=== PATIENT | female | born 1965 | race Caucasian/White ===

== ENCOUNTER 2023-08-09 12:58 | Outpatient (OUT) | payer BC, SELFPAY | END 2023-08-09 12:59 | disposition home or self-care (01) | LOC: PST 12:58 | PROVIDERS: Visit Provider Surgery | DX: Z01.818 Encounter for other preprocedural examination (principal); R19.5 Other fecal abnormalities ==

== ENCOUNTER 2023-08-17 06:18 | Day surgery (SDC) | payer BC, SELFPAY ==
--- OUTSIDE RECORDS SUMMARY | 2023-08-17 06:23 | XMS_ITS | CCD ---
Author Name Unknown Address [address] [place] [address] [address] [place] [address] Organization [facility] Care Team Providers Care Finisher Machine Name Role Phone Dayana Henry Admitting Unavailable Dayana Henry Attending Unavailable LITA FRAUSTO Admitting Unavailable LITA FRAUSTO Attending Unavailable Lita Frausto Md [facility] Primary Care Provider BOZENA NEGRETE Attending Unavailable LITA FRAUSTO MD, [facility] Primary Care BOZENA Street Attending Unavailable LITA FRAUSTO MD, [facility] Primary Care Kevin zamora Medications Current Medications Medication Drug Class(es) Dates Sig (Normalized) Sig (Original) [id number] 200 actuat albuterol 0.09 mg/actuat metered dose inhaler (2 sources) beta2-Adrenergic Agonist Start: 12-31-2016 take 2 puff(s) by inhalation every six hours as needed for wheezing albuterol (PROVENTIL HFA;VENTOLIN HFA) 90 mcg/actuation inhaler Inhale 2 puffs every 6 (six) hours as needed for wheezing. 18 g 2 12/31/2016 Active 60 actuat fluticasone propionate 0.25 mg/actuat / salmeterol 0.05 mg/actuat dry powder inhaler (4 sources) Corticosteroid, beta2-Adrenergic Agonist Start: 03-26-2023 take 1 puff(s) by inhalation in the morning ADVAIR DISKUS 250-50 mcg/dose DISKUS Inhale 1 puff in the morning and 1 puff before bedtime. 0 03/26/2023 Active Start: 12-31-2016 take 2 puff(s) by in halation twice daily fluticasone-salmeterol (ADVAIR HFA) 230-21 mcg/actuation inhaler Inhale 2 puffs 2 (two) times a day for 90 days. 1 Inhaler 2 12/31/2016 Active loratadine 10 mg oral tablet (2 sources) take 1 tablet by mouth in the morning loratadine (CLARITIN) 10 mg tablet Take 1 tablet (10 mg total) by mouth in the morning. 0 Active predniSONE 20 mg oral tablet (2 sources) Start: 05-10-2023 predniSONE (DELTASONE) 20 mg tablet Take 0.5 tablets (10 mg total) by mouth as needed. 0 05/10/2023 Active Problems Problem Classification Problem Date Documented Da te Episodic/Chronic Other gastrointestinal disorders (2 sources) Stool DNA-based colorectal cancer screening positive; Translations: [Other fecal abnormalities] 07-19-2023 Episodic Other gastrointestinal disorders (1 source) Other fecal abnormalities; Translations: [Other fecal abnormalities] Onset: 07-20-2023 Episodic Unclassified (1 source) R39.15 - Urgency of urination; Translations: [R39.15 - Urgency of urination] Onset: 09-26-2018 Unclassified (1 source) Positive Cologuard Onset: 07-20-2023 Results Test Name Value Interpretation Reference Range Facil ity Urine Cultureon 09-26-2018 Bacteria identified Cx Nom (U) ORGANISM: Escherichia coli (O:ESCCOL) Cygnet Count >100,000 Aerobic FRAN Charge (Neg) ---- SUSCEPTIBILITY --- ORGANISM: O:ESCCOL ANTIBIOTIC INTERPRETATION FRAN Amikacin S <16 Amoxacillin/K Clavulanate S <8/4 Ampicillin S <8 Ampicillin/Sulbactam S <8/4 Aztreonam S <8 Cefazolin S <8 Cefepime S <8 Cefotetan S <16 Ceftazidime S <1 Ceftriaxone S <8 Cefuroxime S <4 Ciprofloxacin S <1 Ertapenem S <2 Gentamicin S <4 Levofloxacin S <2 Meropenem S <4 Nitrofurantoin S <32 Piperacillin/Tazobact am S <16 Tetracycline S <4 Tobramycin S <4 Trimethoprim/Sulfamet hoxazole S <2/38 S = SUSCEPTIBLE I = INTERMEDIATE R = RESISTANT BLANK = DATA NOT AVAILABLE, OR DRUG NOT ADVISABLE OR TESTED R* = RESISTANCE DUE TO EXTENDED SPECTRUM BETA-LACTAMASES ESBL = EXTENDED SPECTRUM BETA-LACTAMASE TFG = THYMIDINE-DEPENDENT STRAIN FARIDEH = BETA-LACTAMASE POSITIVE IB = INDUCIBLE BETA-LACTAMASE. APPEARS IN PLACE OF 'S' WITH SPECIES KNOWN TO POSSESS INDUCIBLE BETA-LACTAMASES. POTENTIALLY THEY MAY BECOME RESISTANT TO ALL B-LACTAM DRUGS. PERFORMED BY: [place] [address] PATHOLOGIST INFANT AND TODDLER TEACHER ESTEBAN VALLE M.D. [facility] Comment on above: Performed By: #### C UU #### [address] Vital Signs Date Time Vital Sign Value Performing Clinician Brandt beck 08-10-2023 11:41-0500 Body height 167.6 cm Bozena Negrete APRN-GUIDANCE AND CONTROL SYSTEM ENGINEER Work Phone: [facility] 08-10-2023 11:41-0500 Body mass index (BMI) [Ratio] 23.86 kg/m2 Bozena Negrete MANAGER FINANCIAL SYSTEMS-GUIDANCE AND CONTROL SYSTEM ENGINEER Work Phone: [facility] 08-10-2023 11:41-0500 Body weight 67.04 kg Bozena Negrete MANAGER FINANCIAL SYSTEMS-GUIDANCE AND CONTROL SYSTEM ENGINEER Work Phone: [facility] 08-10-2023 11:41-0500 Diastolic blood pressure 102 mm[Hg] Bozena Negrete MANAGER FINANCIAL SYSTEMS-GUIDANCE AND CONTROL SYSTEM ENGINEER Work Phone: [facility] 08-10-2023 11:41-0500 Systolic blood pressure 177 mm[Hg] Bozena Negrete MANAGER FINANCIAL SYSTEMS-GUIDANCE AND CONTROL SYSTEM ENGINEER Work Phone: [facility] Encounters Encounter Date Encounter Type Care Provider Facility Start: 08-10-2023 End: 08-10-2023 ambulatory BOZENA NEGRETE [facility] Start: 08-10-2023 End: 08-10-2023 Patient encounter procedure Bozena Negrete APRNInteliVideoGUIDANCE AND CONTROL SYSTEM ENGINEER Work Phone: [facility] Comment on above: Positive colorectal cancer screening using Cologuard test (Primary Dx) Start: 07-20-2023 End: 07-20-2023 ambulatory BOZENA NEGRETE [facility] Start: 07-20-2023 End: 07-20-2023 Office outpatient visit 10 minutes Bozena Negrete MANAGER FINANCIAL SYSTEMS-GUIDANCE AND CONTROL SYSTEM ENGINEER Work Phone: [facility] Comment on above: Positive colorectal cancer screening using Cologuard test (Primary Dx) Start: 01-28-2020 Patient encounter procedure LITA FRAUSTO Facility: Start: 09-26-2018 End: 09-26-2018 Patient encounter procedure Dayana Webbault Facility:[facility] Procedures Date Procedure Procedure Detail Performing Clinician Start: 08-10-2023 Follow-up visit Follow-up BOZENA NEGRETE Plan of Treatment Date Care Activity Detail Author Start: 08-10-2024 Adult BMI Screening Adult BMI Screening [facility] Start: 08-10-2024 Tobacco Screening Tobacco Screening [facility] Start: 05-20-2024 Adult BMI Screening Adult BMI Screening [facility] Start: 05-20-2024 Tobacco Screening Tobacco Screening [facility] Start: 08-17-2023 End: 08-17-2023 Patient encounter procedure 08/17/2023 8:00 AM EST Procedure visit [facility] [address] [place] [address] Daniel Samuel DO [address] [id number] [facility] Start: 03-11-2023 COVID-19 Vaccine ( season) COVID-19 Vaccine ( season) [facility] Start: 03-11-2023 Influenza vaccination Influenza Vaccine [facility] Start: 2016 Administration of varicella zoster vaccine Zoster (Shingles) Vaccine (1 of 2) [facility] Start: 09-11-1987 Screening for malignant neoplasm of cervix Pap Smear [facility] Start: 1985 DTaP,Tdap and Td Vaccines (1 - Tdap) DTaP,Tdap and Td Vaccines (1 - Tdap) [facility] Start: 1978 Depression Screening Depression Screening [facility] Immunizations Immunization Date Immunization Notes Care Provider Fa espinoza 10-24-2020 COVID-19, mRNA, LNP- S, PF, 100mcg/0.5mL Dose Bozena Negrete MANAGER FINANCIAL SYSTEMS-GUIDANCE AND CONTROL SYSTEM ENGINEER Work Phone: [facility] 09-26-2020 COVID-19, mRNA, LNP- S, PF, 100mcg/0.5mL Dose Bozena Negrete MANAGER FINANCIAL SYSTEMS-GUIDANCE AND CONTROL SYSTEM ENGINEER Work Phone: [facility] Payers Date Payer Category Payer Unknown [employer] OUT OF STATE PPO/TRUST [id number] 2019-Present [phone] [address] [place] [address] [id number] 2019 Unknown [id number] 1966 Unknown [id number] 1966 Unknown [id number] 1966 Unknown [id number] 1959 Self-pay Unknown [id number] Social History Date Type Detail Facility Start: [facility]23 [facility] Start: 05-20-2023 Tobacco use and exposure Smoke less tobacco non-user [facility] Start: 07-20-2023 End: 08-10-2023 Alcohol intake Current drinker of alcohol (finding) [facility] Start: 09-26-2020 End: 07-20-2023 History of Social function [facility] Start: 09-26-2020 End: 07-20-2023 Tobacco use panel [facility] Housing Instability Unknown [facility] Start: 05-20-2023 Alcohol Comment socially [facility] Start: 1965 Sex Assigned At Not on file [facility] History of Present illness Narrative 08-10-2023 Bozena Negrete, MANAGER FINANCIAL SYSTEMS-GUIDANCE AND CONTROL SYSTEM ENGINEER - 08/10/2023 11:45 AM EST Note Date & Type Note Facility 08-10-2023 History of Present illness Narrative Images from the original note were not included. Chief Complaint: Updated H&P, Positive Cologuard History of Present Illness Mary Kenny is a 57 y.o. female who presents to the office for positive Cologuard. She has never had an EGD or colonoscopy. She denies any changes in her bowels including diarrhea, constipation, abdominal pain, melena, hematochezia, unexplained weight loss. There is no family history of colon cancer. She reports intermittent shortness of breath due to her asthma. Review of Systems Constitutional: Negative for fever and unexpected weight change. HENT: Negative for trouble swallowing. Respiratory: Negative for shortness of breath. Cardiovascular: Negative for chest pain and palpitations. Gastrointestinal: Negative for nausea, vomiting, abdominal pain, diarrhea, constipation, blood in stool and black tarry stool. Genitourinary: Negative for dysuria and difficulty urinating. Musculoskeletal: Negative for joint swelling and gait problem. Skin: Negative for rash and wound. Allergic/Immunologic: Negative for immunocompromised state. Neurological: Negative for dizziness, weakness and light-headedness. Hematological: Does not bruise/bleed easily. Psychiatric/Behavioral: Negative for behavioral problems and confusion. Past Medical History: Diagnosis Date Asthma No past surgical history on file. No Known Allergies Current Outpatient Medications: ADVAIR DISKUS 250-50 mcg/dose DISKUS, Inhale 1 puff in the morning and 1 puff before bedtime., Disp: , Rfl: albuterol (PROVENTIL HFA;VENTOLIN HFA) 90 mcg/actuation inhaler, Inhale 2 puffs every 6 (six) hours as needed for wheezing., Disp: 18 g, Rfl: 2 fluticasone-salmeterol (ADVAIR HFA) 230-21 mcg/actuation inhaler, Inhale 2 puffs 2 (two) times a day for 90 days., Disp: 1 Inhaler, Rfl: 2 loratadine (CLARITIN) 10 mg tablet, Take 1 tablet (10 mg total) by mouth in the morning., Disp: , Rfl: predniSONE (DELTASONE) 20 mg tablet, Take 0.5 tablets (10 mg total) by mouth as needed. (Patient not taking: Reported on 07/20/2023), Disp: , Rfl: Social History Socioeconomic History Marital status: Spouse name: Not on file Number of children: Not on file Years of education: Not on file Highest education level: Not on file Occupational History Not on file Tobacco Use Smoking status: Never Smokeless tobacco: Never Vaping Use Vaping Use: Never used Substance and Sexual Activity Alcohol use: Yes Comment: socially Drug use: Never Sexual activity: Defer Other Topics Concern Not on file Social History Narrative Not on file Social Determinants of Health Financial Resource Strain: Not on file Food Insecurity: No Food Insecurity (07/20/2023) Hunger Screening Food Insecurity - Worry: Never True Food Insecurity - Inability: Never True Transportation Needs: Not on file Physical Activity: Not on file Stress: Not on file Social Connections: Not on file Interpersonal Safety: Not on file Housing Instability: Not on file Family History Problem Relation Age of Onset Breast cancer Maternal Grandmother Objective Physical Exam Constitutional: Appearance: Normal appearance. HENT: Head: Normocephalic and atraumatic. Mouth/Throat: Mouth: Mucous membranes are moist. Eyes: Pupils: Pupils are equal, round, and reactive to light. Cardiovascular: Rate and Rhythm: Normal rate and regular rhythm. Pulmonary: Effort: Pulmonary effort is normal. No respiratory distress. Breath sounds: No wheezing. Abdominal: General: Bowel sounds are normal. There is no distension. Palpations: Abdomen is soft. Tenderness: There is no abdominal tenderness. There is no guarding. Musculoskeletal: General: Normal range of motion. Cervical back: Normal range of motion. Skin: General: Skin is warm and dry. Neurological: Mental Status: She is alert and oriented to person, place, and time. Mental status is at baseline. Vital Signs: Blood pressure (!) 177/102, height 167.6 cm (5' 6 ), weight 67 kg (147 lb 12.8 oz). Respiratory Source: No data recorded Admission Weight: Weight: 67 kg (147 lb 12.8 oz) Labs No results found for: WBC , HGB , HCT , MCV , PLT No results found for: GLU , CALCIUM , NA , K , CO2 , CL , BUN , CREATININE No results found for: AMYLASE No results found for: LIPASE No results found for: ALT , AST , GGT , ALKPHOS , LABBILI No results found for: INR , PROTIME Assessment Mary Kenny is a 57 y.o.female with positive Cologuard. Plan EGD and colonoscopy with possible biopsy and/or polypectomy. Risks, benefits, and alternatives discussed with patient. Educated on bowel evacuation preparation. Patient verbalizes understanding and wishes to proceed. Evaluation included: Preparing to see the patient (e.g., review of tests) Obtaining and/or reviewing separately obtained history Performing a medically appropriate examination and/or evaluation Counseling and educating the patient/family/caregiver Referring and communicating with other health residential child care counselor Positive colorectal cancer screening using Cologuard test [R19.5] RED CARVALHO [facility] [place] This note was created with the assistance of a speech recognition program. While intending to generate a timely document that accurately reflects the content of the visit, no guarantee can be provided that every grammatical or spelling mistake has been or will be identified or corrected. Thank you for your understanding. RED Carvalho 08/10/23 1147 documented in this encounter [facility] History of Present illness Narrative 07-20-2023 RED Carvalho - 07/20/2023 9:00 AM EST Note Date & Type Note Facility 07-20-2023 History of Present illness Narrative Images from the original note were not included. Chief Complaint: Positive Cologuard History of Present Illness Mary Kenny is a 57 y.o. female who presents to the office for positive Cologuard. She has never had an EGD or colonoscopy. She denies diarrhea, constipation, abdominal pain, melena, hematochezia, unexplained weight loss. There is no family history of colon cancer. Review of Systems Constitutional: Negative for fever and unexpected weight change. HENT: Negative for trouble swallowing. Respiratory: Negative for shortness of breath. Cardiovascular: Negative for chest pain and palpitations. Gastrointestinal: Negative for nausea, vomiting, abdominal pain, diarrhea, constipation, blood in stool and black tarry stool. Genitourinary: Negative for dysuria and difficulty urinating. Musculoskeletal: Negative for joint swelling and gait problem. Skin: Negative for rash and wound. Allergic/Immunologic: Negative for immunocompromised state. Neurological: Negative for dizziness, weakness and light-headedness. Hematological: Does not bruise/bleed easily. Psychiatric/Behavioral: Negative for behavioral problems and confusion. Past Medical History: Diagnosis Date Asthma History reviewed. No pertinent surgical history. No Known Allergies Current Outpatient Medications: ADVAIR DISKUS 250-50 mcg/dose DISKUS, Inhale 1 puff in the morning and 1 puff before bedtime., Disp: , Rfl: albuterol (PROVENTIL HFA;VENTOLIN HFA) 90 mcg/actuation inhaler, Inhale 2 puffs every 6 (six) hours as needed for wheezing., Disp: 18 g, Rfl: 2 fluticasone-salmeterol (ADVAIR HFA) 230-21 mcg/actuation inhaler, Inhale 2 puffs 2 (two) times a day for 90 days., Disp: 1 Inhaler, Rfl: 2 loratadine (CLARITIN) 10 mg tablet, Take 1 tablet (10 mg total) by mouth in the morning., Disp: , Rfl: predniSONE (DELTASONE) 20 mg tablet, Take 0.5 tablets (10 mg total) by mouth as needed. (Patient not taking: Reported on 07/20/2023), Disp: , Rfl: Social History Socioeconomic History Marital status: Spouse name: Not on file Number of children: Not on file Years of education: Not on file Highest education level: Not on file Occupational History Not on file Tobacco Use Smoking status: Never Smokeless tobacco: Never Vaping Use Vaping Use: Never used Substance and Sexual Activity Alcohol use: Yes Comment: socially Drug use: Never Sexual activity: Defer Other Topics Concern Not on file Social History Narrative Not on file Social Determinants of Health Financial Resource Strain: Not on file Food Insecurity: No Food Insecurity (07/20/2023) Hunger Screening Food Insecurity - Worry: Never True Food Insecurity - Inability: Never True Transportation Needs: Not on file Physical Activity: Not on file Stress: Not on file Social Connections: Not on file Interpersonal Safety: Not on file Family History Problem Relation Age of Onset Breast cancer Maternal Grandmother Objective Physical Exam Constitutional: Appearance: Normal appearance. Pulmonary: Effort: Pulmonary effort is normal. No respiratory distress. Musculoskeletal: General: Normal range of motion. Neurological: Mental Status: She is alert and oriented to person, place, and time. Mental status is at baseline. Vital Signs: There were no vitals taken for this visit. Respiratory Source: No data recorded Admission Weight: Labs No results found for: WBC , HGB , HCT , MCV , PLT No results found for: GLU , CALCIUM , NA , K , CO2 , CL , BUN , CREATININE No results found for: AMYLASE No results found for: LIPASE No results found for: ALT , AST , GGT , ALKPHOS , LABBILI No results found for: INR , PROTIME Assessment Mary Kenny is a 57 y.o.female with positive Cologuard. Plan EGD and colonoscopy with possible biopsy and/or polypectomy. Risks, benefits, and alternatives discussed with patient. Educated on bowel evacuation preparation. Patient verbalizes understanding and wishes to proceed. Evaluation included: Preparing to see the patient (e.g., review of tests) Obtaining and/or reviewing separately obtained history Performing a medically appropriate examination and/or evaluation Counseling and educating the patient/family/caregiver Referring and communicating with other health residential child care counselor Positive colorectal cancer screening using Cologuard test [R19.5] BOZENA NEGRETE, MANAGER FINANCIAL SYSTEMS-GUIDANCE AND CONTROL SYSTEM ENGINEER [facility] [place] This note was created with the assistance of a speech recognition program. While intending to generate a timely document that accurately reflects the content of the visit, no guarantee can be provided that every grammatical or spelling mistake has been or will be identified or corrected. Thank you for your understanding. Video Visit via Real-time Synchronous Audiovisual Provider Location: [facility] GENERAL SURGERY [facility] [address] [place] [address] Patient Location: Other Video Visit Consent Statement: I discussed risks, benefits, and alternatives of a real-time synchronous audiovisual consultation with the patient (and any accompanying persons) including the risks that the patient's personal health details and medical records will be discussed over real-time, synchronous, interactive video/audio/telecommunication technology, the visit will not be recorded without the express consent of both the provider and the patient, and that there are some limitations compared to [id number] evaluations. The patient consented to the presence of additional virtual and/or in-person participants. We elected to proceed. RED Carvalho 07/20/23 0908 documented in this encounter [facility] Evaluation note Note Date & Type Note Facility Evaluation note Diagnosis Positive colorectal cancer screening using Cologuard test- Primary documented in this encounter [facility] Evaluation note Note Date & Type Note Facility Evaluation note Diagnosis Positive colorectal cancer screening using Cologuard test- Primary documented in this encounter [facility] Instructions Note Date & Type Note Facility Instructions Not on filedocumented in this en counter [facility] Instructions Note Date & Type Note Facility Instructions Not on filedocumented in this en counter [facility] Summary Purpose Family History No Family History Records FoundNo Family History Records FoundNo Family History Records Found Advance Directives No Advanced Directives Records FoundNo Advanced Directives Records FoundNo Advanced Directives Records Found Additional Source Comments INFORMATION SOURCE (unrecogn ized section and content) DATE CREATED AUTHOR 10/14/2018 [facility] DATE CREATED AUTHOR AUTHOR'S ORGANIZ ATION 02/02/2020 [facility] DATE CREATED AUTHOR AUTHOR'S ORGANIZ ATION 08/14/2023 [facility] Reason for Visit (unrecogniz ed section and content) Reason Comments Positive Cologuard Updated H&P for 2023 EGD/Colonoscopy at [facility] Reason Comments Follow-up pt. needs updated H & P per [facility] surgery 08/17/23 - Colonoscopy, positive cologuard Care Teams (unrecognized sec tion and content) Finisher Machine Relationship Specialty Start Date End Date Lita Frausto Md [address] [address] PCP - General Internal Medicine 10/31/23 Finisher Machine Relationship Specialty Start Date End Date Lita Frausto Md [address] [address] PCP - General Internal Medicine 05/10/23 FOR RECORDS PERTAINING TO PATIENTS WHO ARE OR HAVE BEEN ENROLLED IN A CHEMICAL DEPENDENCY/SUBSTANCEABUSE PROGRAM, SOME INFORMATION MAY BE OMITTED. This clinical summary was aggregated from multiple sources. Caution should be exercised in using it in the provision of clinical care. This summary normalizes information from multiple sources, and as a consequence, information in this document may materially change the coding, format and clinical context of patient data. In addition, data may be omitted in some cases. CLINICAL DECISIONS SHOULD BE BASED ON THE PRIMARY CLINICAL RECORDS. [employer] provides no warranty or guarantee of the accuracy or completeness of information in this document.
[2023-08-17 06:44] VITALS: BP 152/93; PULSE 95; RESP 16; TEMP 35.8; O2SAT 96; BMI 23.6
[2023-08-17] MEDS: LACTATED RINGER'S SOLUTION 1,000 ML 50 ML IV (07:04)
--- NOTE | 2023-08-17 08:05 | P.GSPRC_ITS ---
Date of procedure: 08/17/23 Indications for Procedure: positive colo guard Pre-op diagnosis: positive [place] guard Post-op diagnosis: other (adenomatous colon polyp calculated sigmoid colon 35 cm less than 1 cm; Esophagitis rule out Brizuela's esophagus) Procedure: EGD with biopsy antrum and distal esophagus colonoscopy with hot snare polyp sigmoid colon Findings: esophagitis rule out Brizuela's Sigmoid colon polyp pedunculated less than 1 cm Anesthesia: MAC Surgeon: Daniel Samuel Procedure Summary: PROCEDURE: The patient was taken to the Endoscopy Suite, placed in the left lateral recumbent position, given IV sedation as above. the Olympus EGD scope was advanced under direct visualization into the posterior pharynx esophagus stomach through the pylorus into the 1st 2nd 3rd and 4th portions of the duodenum which were completely normal. There were no tumors polyps or diverticuli seen. The scope was slowly withdrawn and retroflexed on itself looking the GE junction which was normal. Random biopsies of the antrum were taken and hemostasis maintained. The scope was then withdrawn to the distal esophagus where she has mild esophagitis and possibly early Brizuela's and biopsies were taken and hemostasis maintained. The rest of the esophagus was normal. There were no polyps tumors or strictures or diverticuli noted. The scope was removed from the bowel. Patient which turned and then A rectal digital exam was performed. The sphincter tone was found to be normal. No rectal masses were appreciated. The Olympus video colonoscope was advanced under direct visualization to the rectum, sigmoid colon, descending colon, transverse colon and ascending colon to the ileocecal valve. appendiceal lumen was visualized. The underside of the valve was seen. The scope was slowly withdrawn with air being desufflated as it was withdrawn. no gross tumors or diverticuli were noted but she did have a pedunculated polyp about 1 cm located at 35 cm from the anal verge. Hot snare polypectomy was performed. Hemostasis was maintained. Specimen was sent to pathology. The patient tolerated the procedure well and went to the Recovery Area in satisfactory condition. I recommend the patient repeat surveillance colonoscopy in five years as long as pathology is a tubular adenoma. Estimated blood loss (mL): 0 Complications: No Condition: stable Disposition: PACU
[2023-08-17 08:06] VITALS: BP 146/105; PULSE 94; RESP 16; O2SAT 99
[2023-08-17 08:26] VITALS: BP 156/98; PULSE 96; RESP 16; O2SAT 96
[2023-08-19 15:34] LABS: H Pylori Tissue, Urease Negative
== END 2023-08-17 08:47 | disposition home or self-care (01) ==
PROVIDERS: PCP Family Medicine; Visit Provider Surgery
PROC: (CPT 813; principal; 2023-08-17 07:30)
DX: R19.5 Other fecal abnormalities (principal); K63.5 Polyp of colon; K21.00 Gastro-esophageal reflux disease with esophagitis, without bleeding; J45.909 Unspecified asthma, uncomplicated
CPT/HCPCS: 43239; 45385; 87077; 88305; 99999; J2250; J2704